=== PATIENT | female | born 1990 | race Hispanic/Latino ===

== ENCOUNTER 2019-08-03 15:14 | Emergency (ER) | payer BC ==
[~2019-08-03] VITALS: Ht 160 cm; Wt 68.0 kg
[~2019-08-03 15:14] MED LIST: LEXAPRO10 MG PO; ULTRACET TABLE1 EACH PO
[2019-08-03] MEDS ORDERED: HYDROCODONE/APAP 10MG-325MG TAB PO ONE (16:30)
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
[2019-08-03 19:22] VITALS: BP 137/73
== END 2019-08-03 19:23 | disposition home or self-care (01) ==
LOC: ER 15:14
DX: S16.1XXA Strain of muscle, fascia and tendon at neck level, initial encounter (principal); V89.2XXD Person injured in unspecified motor-vehicle accident, traffic, subsequent encounter
CPT/HCPCS: 70450; 72125; 99283

== ENCOUNTER 2022-12-10 13:31 | Emergency (ER) | payer BC ==
[~2022-12-10] VITALS: Ht 162.6 cm; Wt 74.8 kg
[2022-12-10 13:35] VITALS: O2SAT 98
[2022-12-10] MEDS ORDERED: PREDNISONE50 MG PO (14:25)
[2022-12-10] MEDS ORDERED: METHOCARBAMOL750 MG PO (14:26)
[2022-12-10] MEDS ORDERED: ULTRAM 50MG50 MG PO (14:28)
[2022-12-10] MEDS ORDERED: PREDNISONE 20 MG TAB ONE (14:28)
[2022-12-10] MEDS ORDERED: PREDNISONE 20 MG TAB PO ONE (14:30)
== END 2022-12-10 14:40 | disposition home or self-care (01) ==
LOC: FSED 13:36
DX: M54.16 Radiculopathy, lumbar region (principal); M54.50 Low back pain, unspecified; F41.9 Anxiety disorder, unspecified; F32.A Depression, unspecified; Z98.84 Bariatric surgery status
CPT/HCPCS: 99282; J7512